=== PATIENT | female | born 2005 | race Caucasian/White ===

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

== ENCOUNTER → 2023-08-16 | Outpatient (CLI) | payer OTHER, BC | END | disposition home or self-care (01) | LOC: RAD 16:34 | PROVIDERS: ATTEND Pediatrics | DX: M25.511 Pain in right shoulder (principal); M25.512 Pain in left shoulder; M54.2 Cervicalgia ==

== ENCOUNTER → 2024-11-28 | Outpatient (CLI) | payer OTHER, BC | END | disposition home or self-care (01) | LOC: RAD 16:02 | PROVIDERS: ATTEND Pediatrics | DX: R00.0 Tachycardia, unspecified (principal); R07.9 Chest pain, unspecified; R06.00 Dyspnea, unspecified ==